=== PATIENT | female | born 1985 | race Caucasian/White ===

== ENCOUNTER 2023-06-15 09:52 | Outpatient (CLI) | payer OTHER | END 2023-06-15 09:53 | disposition home or self-care (01) | LOC: ULT 09:52 | PROVIDERS: ATTEND Internal Medicine | DX: E04.2 Nontoxic multinodular goiter (principal) | CPT/HCPCS: 76536 ==

== ENCOUNTER 2023-06-15 10:13 | Outpatient (CLI) | payer OTHER | END 2023-06-15 10:14 | disposition home or self-care (01) | LOC: BICMAMMO 10:13 | PROVIDERS: ATTEND Internal Medicine | DX: M32.10 Systemic lupus erythematosus, organ or system involvement unspecified (principal) | CPT/HCPCS: 77080 ==

== ENCOUNTER → 2023-08-18 | Day surgery (SDC) | payer OTHER ==
[~2023-08-18] MED LIST: Lidocaine 1% w/Epinephrine 1:100K 20 ML VIAL ONE; Midazolam HCl 2 mg/2 ml Vial ONE; Ondansetron PF 4 MG/2 ML Vial ONE; Sodium Bicarbonate 0.5 MEQ/ML SDV 10 ML ONE; diphenhydrAMINE 50 MG/ML VIAL ONE; fentaNYL 50 mcg/mL 1 mL Vial ONE
[2023-08-18 09:04] LABS: Hematocrit 39.7 % (36.0-47.0); Hemoglobin 13.1 g/dL (12.0-16.0); Manual Diff?? YES; Mean Corpuscular Hemoglobin 33.4 pg (27.0-31.0); Mean Corpuscular Volume 101.3 fl (78.0-98.0); Mean Platelet Volume 7.7 fL (7.4-10.4); Platelet Count 369 10x3/uL (130-400); RBC Distribution Width 13.3 % (11.5-14.5); Red Blood Cell (RBC) Count 3.92 mill/uL (4.20-5.40); White Blood Cell (WBC) Count 17.5 10x3/uL (4.8-10.8)
[2023-08-18 09:09] LABS: Delete Auto Diff?? YES
[2023-08-18 09:27] LABS: Anion Gap 14 mmol/L (10-20); BUN (Urea Nitrogen) 30 mg/dL (7.0-18.7); Calc. Creatinine Clearance 0 mL/min (70-130); Calcium 9.5 mg/dL (7.8-10.44); Carbon Dioxide 24 mmol/L (22-29); Chloride 106 mmol/L (98-107); Estimated GFR 63; Glucose 72 mg/dL (70-105); Potassium 4.3 mmol/L (3.5-5.1); Sodium 140 mmol/L (136-145)
[2023-08-18 09:29] LABS: Band 2 % (5-11); CellaVision Operator ID LAB.KB; Lymphocytes 5 % (21-51); Macrocytosis SLIGHT = 6-15 cells HPF (0-5); Monocytes 3 % (0-10); Myelocyte 5 % (0-0); Neutrophil 85 % (42-75); Platelet Adequacy Comment Platelets Normal; Polychromasia SLIGHT = 2-3 cells HPF (0-2); Rouleaux Formation SLIGHT = 1-5 cells HPF (None Seen); Total Cell Count 101
[2023-08-18 09:32] LABS: PTT 26.4 sec (22.9-36.1)
== END ==
LOC: CT 08:45
PROVIDERS: ATTEND Internal Medicine Nephrology
PROC: 0TB13ZX Excision of Left Kidney, Percutaneous Approach, Diagnostic (ICD-10-PCS; principal; 2023-08-18)
DX: M32.14 Glomerular disease in systemic lupus erythematosus (principal); M32.9 Systemic lupus erythematosus, unspecified; R80.9 Proteinuria, unspecified; N18.9 Chronic kidney disease, unspecified
CPT/HCPCS: 50200; 77012; 80048; 85025; 85610; 85730; 88329; J1200; J2250; J2405; J3010

== ENCOUNTER 2024-06-08 09:09 | Outpatient (CLI) | payer OTHER | END 2024-06-08 09:10 | disposition home or self-care (01) | LOC: ULT 09:09 | PROVIDERS: ATTEND Internal Medicine | DX: E04.2 Nontoxic multinodular goiter (principal) | CPT/HCPCS: 76536 ==